=== PATIENT | male | born 1950 | race African-American/Black ===

== ENCOUNTER 2018-03-10 12:16 | Observation (INO) ==
[2018-03-10 13:25] LABS: Baso % (Auto) 0.7 % (0.0-2.0); Eos # (Auto) 0.1 th/mm3 (0.0-0.4); Eos % (Auto) 2.1 % (0.0-4.0); Hematocrit 36.4 % (39.0-51.0); Hemoglobin 12.2 gm/dL (13.0-17.0); Lymph # (Auto) 2.2 th/mm3 (1.0-4.8); Lymph % (Auto) 34.6 % (9.0-44.0); Mean Corpuscular HGB Conc 33.4 % (32.0-36.0); Mean Corpuscular Hemoglobin 31.1 pg (27.0-34.0); Mean Corpuscular Volume 93.2 fL (80.0-100.0); Mean Platelet Volume 8.6 fL (7.0-11.0); Mono # (Auto) 0.5 th/mm3 (0.0-0.9); Mono % (Auto) 7.7 % (0.0-8.0); Neut # (Auto) 3.5 th/mm3 (1.8-7.7); Neut % (Auto) 54.9 % (16.0-70.0); Platelet Count 237 th/mm3 (150-450); Red Blood Count 3.91 mil/mm3 (4.50-5.90); Red Cell Distribution Width 14.1 % (11.6-17.2); White Blood Count 6.3 th/mm3 (4.0-11.0)
--- NOTE | 2018-03-10 13:27 | XR ---
EXAM DATE: 03/10/2018 12:45 PM EDT AGE/SEX: 67 years / Male INDICATIONS: Shortness of breath. CLINICAL DATA: This is the patient's initial encounter. Patient reports that signs and symptoms have been present for 1 day and indicates a pain score of 0/10. MEDICAL/SURGICAL HISTORY: Diabetes. None. COMPARISON: . FINDINGS: A single AP view of the chest demonstrates the lungs to be symmetrically aerated without evidence of mass, infiltrate or effusion. The cardiomediastinal contours are unremarkable. Osseous structures a re intact. CONCLUSION: No acute cardiopulmonary disease Electronically signed by: Dirk Jovel MD 03/10/2018 1:25 PM EDT
[2018-03-10 13:32] LABS: Albumin 3.3 g/dL (3.4-5.0); Anion Gap 7 meq/L (5-15); Aspartate Aminotransferase 29 U/L (15-37); Blood Urea Nitrogen 11 mg/dL (7-18); Calcium 7.6 mg/dL (8.5-10.1); Chloride 107 meq/L (98-107); Glomerular Filtration Rate 67 mL/min (>89); Glucose,Random 166 mg/dL (74-106); Potassium 4.2 meq/L (3.5-5.1); Sodium 144 meq/L (136-145)
[2018-03-10 13:36] LABS: Prothrombin Time 10.6 sec (9.8-11.6)
[2018-03-10 13:37] LABS: Alanine Aminotransferase 32 U/L (12-78); Alkaline Phosphatase 74 U/L (45-117); Total Protein 6.7 g/dL (6.4-8.2); Troponin I 0.04 ng/mL (0.02-0.05)
--- NOTE | 2018-03-10 15:45 | ED ---
HPI General Chief Complaint: Chest Pain Stated Complaint: dizziness/left shoulder pain Time Seen by Provider: 03/10/18 12:36 Source: patient and family Mode of arrival: ambulatory Limitations: no limitations History of Present Illness HPI narrative: Patient is a 67-year-old male who presents with complaint of left shoulder/left chest pain that has been intermittent over the last several days and occurred again this morning. It comes on while resting and is not associated with exertion. He denies any nausea, vomiting. He does admit to some dyspnea when it began but is not having any pain or dyspnea at this time. He took approximately 81 mg of aspirin earlier this morning in addition to his diabetic medications. No cough, fever, chills. No numbness or weakness. He has not been immobilized and has no leg swelling. MD complaint: Reports chest pain STEMI Alert: No Onset (ago): minute(s) Duration: intermittent Onset: during rest Pain location: Reports left chest Severity: moderate Quality: Reports heaviness Relieving factors: nothing Exacerbating factors: nothing Associated symptoms: Reports dyspnea Treatments prior to arrival chest pain: Reports aspirin (81 mg) Related Data Home Medications Medication Instructions Recorded Confirmed insulin glargine [Lantus U-100 30 unit SUBCUT HS 03/10/18 03/10/18 Insulin] metformin 2,000 mg PO DAILY 03/10/18 03/10/18 Allergies Allergy/AdvReac Type Severity Reaction Status Date / Time No Known Allergies Allergy Verified 03/10/18 13:33 Review of Systems ROS: all other systems reviewed are negative [facility] Medical History Medical History Diabetes (Acute) Social History Social History Substance History: No History of Abuse Smoking Status: Former smoker How Often Do You Have a Drink Containing Alcohol: Never Recent Travel in [facility] within the Last 8 Weeks: No Recent Out of Country Travel within the Last 8 Weeks: No Immunization History Tetanus Immunization: Unsure Exam Narrative Exam Narrative: GENERAL: Well-appearing, elderly male in no acute distress SKIN: Focused skin assessment warm/dry. No rashes. HEAD: Atraumatic. Normocephalic. EYES: Pupils equal and round. No scleral icterus. No injection or drainage. ENT: No nasal bleeding or discharge. Mucous membranes pink and moist. NECK: Trachea midline. No JVD. CARDIOVASCULAR: Regular rate and rhythm. No murmur appreciated. Intact and equal peripheral pulses. RESPIRATORY: No accessory muscle use. Clear to auscultation. Breath sounds equal bilaterally. GASTROINTESTINAL: Abdomen soft, non-tender, nondistended. Hepatic and splenic margins not palpable. MUSCULOSKELETAL: No obvious deformities. No clubbing. No cyanosis. No edema. NEUROLOGICAL: Awake and alert. No obvious cranial nerve deficits. Motor grossly within normal limits. Normal sensation. Normal speech. PSYCHIATRIC: Appropriate mood and affect; insight and judgment normal. Course Initial Documented Vital Signs Temperature 97.8 F 03/10/18 12:22 Pulse Rate 80 03/10/18 12:22 Respiratory Rate 19 03/10/18 12:22 Blood Pressure 139/70 03/10/18 12:22 Pulse Oximetry 98 03/10/18 12:22 Last Documented Vital Signs Temperature 97.7 F 03/10/18 13:26 Pulse Rate 70 03/10/18 13:26 Respiratory Rate 17 03/10/18 13:26 Blood Pressure 157/68 H 03/10/18 13:26 Pulse Oximetry 98 03/10/18 13:26 Medical Decision Making MDM Narrative Medical decision making narrative: Patient is a 67-year-old male with history of diabetes who presents with complaint of chest pain that has been intermittent. EKG shows T wave flattening in lead III but no other ST or T wave changes. He is pain-free on arrival here. Labs and chest x-ray are relatively unremarkable. He has been admitted to the chest pain center for serial troponins and EKGs. Medical Screen Exam Complete: Yes Emergency Medical Condition: Yes Differential Diagnosis Differential Diagnosis: Differential diagnosis includes but is not limited to acute coronary syndrome, pneumonia, pneumothorax. Medical Records Medical records reviewed: Yes I reviewed the patient's medical records. Lab Data Lab results reviewed: Yes I reviewed the patient's lab results. Result diagrams: 03/10/18 13:00 03/10/18 13:00 Lab Results 03/10/18 03/10/18 03/10/18 Range/Units 13:00 13:00 13:00 WBC 6.3 (4.0-11.0) th/mm3 RBC 3.91 L (4.50-5.90) mil/mm3 Hgb 12.2 L (13.0-17.0) gm/dL Hct 36.4 L (39.0-51.0) % MCV 93.2 (80.0-100.0) fL MCH 31.1 (27.0-34.0) pg MCHC 33.4 (32.0-36.0) % RDW 14.1 (11.6-17.2) % Plt Count 237 (150-450) th/mm3 MPV 8.6 (7.0-11.0) fL Neut % (Auto) 54.9 (16.0-70.0) % Lymph % (Auto) 34.6 (9.0-44.0) % Gulf % (Auto) 7.7 (0.0-8.0) % Eos % (Auto) 2.1 (0.0-4.0) % Baso % (Auto) 0.7 (0.0-2.0) % Neut # (Auto) 3.5 (1.8-7.7) th/mm3 Lymph # (Auto) 2.2 (1.0-4.8) th/mm3 Gulf # (Auto) 0.5 (0.0-0.9) th/mm3 Eos # (Auto) 0.1 (0.0-0.4) th/mm3 Baso # (Auto) 0.0 (0.0-0.2) th/mm3 WBC Differential . Differential Comment Auto diff final PT 10.6 (9.8-11.6) sec INR 1.0 Ratio APTT 25.0 (24.3-30.1) sec Sodium 144 (136-145) meq/L Potassium 4.2 (3.5-5.1) meq/L Chloride 107 (98-107) meq/L Carbon Dioxide 30.0 (21.0-32.0) meq/L Anion Gap 7 (5-15) meq/L BUN 11 (7-18) mg/dL Creatinine 1.10 (0.60-1.30) mg/dL Estimated GFR 67 L (>89) mL/min Random Glucose 166 H (74-106) mg/dL Calcium 7.6 L (8.5-10.1) mg/dL Total Bilirubin 0.3 (0.2-1.0) mg/dL AST 29 (15-37) U/L ALT 32 (12-78) U/L Alkaline Phosphatase 74 (45-117) U/L Troponin I 0.04 (0.02-0.05) ng/mL Total Protein 6.7 (6.4-8.2) g/dL Albumin 3.3 L (3.4-5.0) g/dL 03/10/18 Range/Units 13:00 WBC (4.0-11.0) th/mm3 RBC (4.50-5.90) mil/mm3 Hgb (13.0-17.0) gm/dL Hct (39.0-51.0) % MCV (80.0-100.0) fL MCH (27.0-34.0) pg MCHC (32.0-36.0) % RDW (11.6-17.2) % Plt Count (150-450) th/mm3 MPV (7.0-11.0) fL Neut % (Auto) (16.0-70.0) % Lymph % (Auto) (9.0-44.0) % Gulf % (Auto) (0.0-8.0) % Eos % (Auto) (0.0-4.0) % Baso % (Auto) (0.0-2.0) % Neut # (Auto) (1.8-7.7) th/mm3 Lymph # (Auto) (1.0-4.8) th/mm3 Gulf # (Auto) (0.0-0.9) th/mm3 Eos # (Auto) (0.0-0.4) th/mm3 Baso # (Auto) (0.0-0.2) th/mm3 WBC Differential Differential Comment PT (9.8-11.6) sec INR Ratio APTT (24.3-30.1) sec Sodium (136-145) meq/L Potassium (3.5-5.1) meq/L Chloride (98-107) meq/L Carbon Dioxide (21.0-32.0) meq/L Anion Gap (5-15) meq/L BUN (7-18) mg/dL Creatinine (0.60-1.30) mg/dL Estimated GFR (>89) mL/min Random Glucose (74-106) mg/dL Calcium (8.5-10.1) mg/dL Total Bilirubin (0.2-1.0) mg/dL AST (15-37) U/L ALT (12-78) U/L Alkaline Phosphatase (45-117) U/L Troponin I Cancelled (0.02-0.05) ng/mL Total Protein (6.4-8.2) g/dL Albumin (3.4-5.0) g/dL Imaging Data Attestation: I personally reviewed and interpreted this imaging study as follows : Radiologist's impression: Chest X-Ray 03/10/18 12:45 CONCLUSION: No acute cardiopulmonary disease ECG Data EKG Prior to Arrival: No Attestation: I personally reviewed and interpreted this ECG as follows: (Sinus rhythm at a rate of 72 bpm. There is T wave flattening in lead III but no other ST or T wave changes.) Discharge Plan Discharge Disposition Patient Disposition: 30 Still Patient Discharge Condition Condition: Stable Discharge Details Diagnosis: Chest pain, rule out acute myocardial infarction Physicians Team ED Provider: Avelina Zuluaga Primary Care Provider: [facility] Attending Provider: Felipe Paulino Discharge Interventions Interventions: Vital Signs Last Done: 03/10/18 13:26 Status ED Status: Admitted Observation Patient
[2018-03-10] MEDS ORDERED: Acetaminophen 500 MG Tablet PO PRN (15:46)
[2018-03-10] MEDS ORDERED: Dextrose 50% in Water 50 ML Vial IV.PUSH PRN (15:54)
--- NOTE | 2018-03-10 17:03 | P.HPCA ---
History of Present Illness Primary Care Physician: [facility] Chief Complaint: Chest pain History of Present Illness: 67 year old male with history of type II diabetes presents to ER for further evaluation of left side neck and chest pain. Onset mid-morning. Location left side of neck. Characterized as throbbing and an ache. Intermittent radiation to left anterior chest. Discomfort comes on quickly and resolves quickly. Duration "a few minutes." Associated symptoms include mild shortness of breath and slight dizziness. Denied nausea, vomiting, or dyspnea. No precipitating or relieving factors. Denies similar pain in the past. No particular movement, position, or breathing makes discomfort better or worse. No known coronary artery disease. Known type 2 diabetes, diagnosed age 37. Reports last HGA1C to be around 10%. Also have experienced intermittent palpations and feeling his heart "missing a beat" for one month. No associated symptoms with palpations. Past cardiac testing Remote exercise testing while in the . Social history Known diabetes. No known hyperlipidemia, hypertension, or CAD. Prescribed atorvastatin and ARB, likely due to diabetes diagnoses. Remote smoker, quit over 40 years ago. No alcohol or recreational drug use. Retired from [employer] 26 years. Disabled. . Endorses sedentary lifestyle. Family history Noncontributory for early onset cardiovascular disease. Brother required cardiac stent in his mid 60s. X4 sisters from cancer, type of cancer unknown. Mother age 80 complications from diabetes. Father when he was 7 years old. - Diagnosis (1) Chest pain of uncertain etiology (2) Type 2 diabetes mellitus with peripheral neuropathy (3) History of anemia Review of Systems All other systems reviewed negative except as stated [facility] - History History Provided By: Patient - Medical History Medical History: Medical History (Last Updated 03/10/18 @ 16:53 by GYPSY Parrish) Arthritis Diabetic neuropathy GERD (gastroesophageal reflux disease) Hypothyroidism associated with surgical procedure Type 2 diabetes mellitus - Surgical History Surgical History: Surgical History (Last Updated 03/10/18 @ 16:54 by GYPSY Parrish) History of thyroidectomy - Family History Family History: Family History (Last Updated 03/10/18 @ 16:54 by GYPSY Parrish) Brother Coronary artery disease Father Type 2 diabetes mellitus Sister Cancer Sister Cancer Sister Cancer Sister Cancer - Social History I have reviewed the patient's Social History: Yes - Tobacco History Second Hand Smoke Exposure: No Tobacco Use In Past 30 Days: No Smoking Status: Former smoker (Quit over 40 years ago.) - Alcohol History How Often Do You Have a Drink Containing Alcohol: Never - Substance Use History Substance History: No History of Abuse - Travel History Recent Travel in the [place] Within the Last 8 Weeks: No Recent Travel Out of the Country Within the Last 8 Weeks: No - Immunization History Tetanus Immunization: Unsure Medications and Allergies Active Medications: Active Medications Acetaminophen (Tylenol) 500 mg PO Q4H PRN PRN Reason: HEADACHE Dextrose (D50w Vial) 50 ml IV.PUSH UNSCH PRN PRN Reason: PER HYPOGLYCEMIA PROTOCOL Glucagon (Glucagon Inj) 1 mg OTHER PRN PRN PRN Reason: for Hypoglycemia Protocol Insulin Aspart (Novolog Insulin Correctional Sugar Inj) 0 unit SQ ACHS RICKI; Protocol Nitroglycerin (Nitrostat Sl) 0.4 mg SL Q5M PRN PRN Reason: CHEST PAIN Ondansetron HCl (Zofran Inj) 4 mg IV.PUSH Q6H PRN PRN Reason: NAUSEA Sodium Chloride (Ns Flush) 2 ml IV.FLUSH UNSCH PRN PRN Reason: FLUSH AFTER USING IV ACCESS Last Admin: 03/10/18 12:54 Dose: 2 ml Sodium Chloride (Ns Flush) 2 ml IV.FLUSH BID RICKI Allergies Allergy/AdvReac Type Severity Reaction Status Date / Time No Known Allergies Allergy Verified 03/10/18 13:33 Home Medications Medication Instructions Recorded Confirmed Type insulin glargine [Lantus U-100 30 unit SUBCUT HS 03/10/18 03/10/18 History Insulin] metformin 2,000 mg PO DAILY 03/10/18 03/10/18 History Exam Vital signs: Vital Signs 03/10/18 12:22 03/10/18 12:48 03/10/18 12:49 Temperature 97.8 F Pulse Rate 80 81 Respiratory Rate 19 Blood Pressure 139/70 Pulse Oximetry 98 100 03/10/18 12:50 03/10/18 13:26 03/10/18 15:50 Temperature 97.7 F 97.9 F Pulse Rate 79 70 69 Respiratory Rate 16 17 16 Blood Pressure 157/68 H 157/68 H 150/68 H Pulse Oximetry 100 98 99 03/10/18 15:54 Temperature 97.7 F Pulse Rate 103 H Respiratory Rate 20 Blood Pressure 178/88 H Pulse Oximetry 98 Intake & Output 03/09/18 03/10/18 03/10/18 18:59 06:59 18:59 Weight 81.647 kg Narrative: GENERAL: Alert WN, WD, NAD, pleasant, -[place], elderly male HEAD: NC, AT EYES: Sclera clear, conjunctiva without injection, pupils equal and round ENT: Mucous membranes pink and moist NECK: Supple, no masses, trachea midline CV: RRR, without murmur, rub, gallop, no JVD, S1-S2 no S3-S4. No carotid bruits. Chest wall nontender with palpation. RESP: Clear lungs throughout bilateral, no crackles, wheeze, rhonchi, symmetrical chest rise, nonlabored, able to speak in full sentences ABD: Soft, NT, ND, no masses, positive bowel tones EXT: Pulses +1x4, no dependent edema MS: Normal tone x4 extremities, nontender, no obvious deformities, full range of motion, cervical area nontender with palpation, pain slightly reproduced during passive ROM, difficult for him to determine, no pain reproduced during passive ROM during abduction and adduction. NEURO: CN II through CN XII grossly intact, motor strength 5/5 PSYCH: A+O x3, pleasant affect, appropriate speech, mood, insight and judgment SKIN: Normal turgor, normal texture, no lesions, no rashes Results 03/10/18 13:00 03/10/18 13:00 Cardiac Enzymes 03/10/18 03/10/18 Range/Units 13:00 13:00 AST 29 (15-37) U/L Troponin I 0.04 Cancelled (0.02-0.05) ng/mL Coagulation 03/10/18 Range/Units 13:00 PT 10.6 (9.8-11.6) sec APTT 25.0 (24.3-30.1) sec CBC 03/10/18 Range/Units 13:00 WBC 6.3 (4.0-11.0) th/mm3 RBC 3.91 L (4.50-5.90) mil/mm3 Hgb 12.2 L (13.0-17.0) gm/dL Hct 36.4 L (39.0-51.0) % Plt Count 237 (150-450) th/mm3 Neut # (Auto) 3.5 (1.8-7.7) th/mm3 Lymph # (Auto) 2.2 (1.0-4.8) th/mm3 Story # (Auto) 0.5 (0.0-0.9) th/mm3 Eos # (Auto) 0.1 (0.0-0.4) th/mm3 Baso # (Auto) 0.0 (0.0-0.2) th/mm3 Comprehensive Metabolic Panel 03/10/18 Range/Units 13:00 Sodium 144 (136-145) meq/L Potassium 4.2 (3.5-5.1) meq/L Chloride 107 (98-107) meq/L Carbon Dioxide 30.0 (21.0-32.0) meq/L BUN 11 (7-18) mg/dL Creatinine 1.10 (0.60-1.30) mg/dL Calcium 7.6 L (8.5-10.1) mg/dL AST 29 (15-37) U/L ALT 32 (12-78) U/L Alkaline Phosphatase 74 (45-117) U/L Total Protein 6.7 (6.4-8.2) g/dL Albumin 3.3 L (3.4-5.0) g/dL Intake and Output 03/10/18 03/10/18 03/10/18 06:59 14:59 22:59 Other: Weight 81.647 kg Patient Weight 03/11/18 06:59 Weight 81.647 kg - Imaging and Cardiology Imaging: Impressions Chest X-Ray 03/10/18 12:45 CONCLUSION: No acute cardiopulmonary disease EKG interpretations - EKG EKG results cardiology: sinus rhythm, normal axis, normal QRS, normal ST/T Caprini VTE Risk Assessment Caprini VTE Risk Assessment: Moderate/High Risk (score >= 2) Caprini Risk Assessment Model: Point Value = 1 Point Value = 2 Point Value = 3 Point Value = 5 Age 41-60 Minor surgery BMI > 25 kg/m2 Swollen legs Varicose veins or History of unexplained or recurrent spontaneous Oral contraceptives or hormone replacement Sepsis (< 1 month) Serious lung disease, including pneumonia (< 1 month) Abnormal pulmonary function Acute myocardial infarction Congestive heart failure (< 1 month) History of inflammatory bowel disease Medical patient at bed rest Age 61-74 Arthroscopic surgery Major open surgery (> 45 min) Laparoscopic surgery (> 45 min) Malignancy Confined to bed (> 72 hours) Immobilizing plaster cast Central venous access Age >= 75 History of VTE Family history of VTE Factor V Leiden Prothrombin [id number] Lupus anticoagulant Anticardiolipin antibodies Elevated serum homocysteine Heparin-induced thrombocytopenia Other congenital or acquired thrombophilia Stroke (< 1 month) Elective arthroplasty Hip, pelvis, or leg fracture Acute spinal cord injury (< 1 month) Prophylaxis Regimen: Total Risk Factor Score Risk Level Prophylaxis Regimen 0-1 Low Early ambulation 2 Moderate Order ONE of the following: *Sequential Compression Device (SCD) *Heparin 5000 units SQ BID 3-4 Higher Order ONE of the following medications: *Heparin 5000 units SQ TID *Enoxaparin/Lovenox 40 mg SQ daily (WT < 150 kg, CrCl > 30 mL/min) *Enoxaparin/Lovenox 30 mg SQ daily (WT < 150 kg, CrCl > 10-29 mL/min) *Enoxaparin/Lovenox 30 mg SQ BID (WT < 150 kg, CrCl > 30 mL/min) AND/OR *Sequential Compression Device (SCD) 5 or more Highest Order ONE of the following medications: *Heparin 5000 units SQ TID (Preferred with Epidurals) *Enoxaparin/Lovenox 40 mg SQ daily (WT < 150 kg, CrCl > 30 mL/min) *Enoxaparin/Lovenox 30 mg SQ daily (WT < 150 kg, CrCl > 10-29 mL/min) *Enoxaparin/Lovenox 30 mg SQ BID (WT < 150 kg, CrCl > 30 mL/min) AND *Sequential Compression Device (SCD) Assessment and Plan - Assessment (1) Chest pain of uncertain etiology Code(s): R07.89 - Other chest pain Status: Acute Plan: Admitted to chest pain center. Continue ruling out ACS with 3 sets of EKGs and cardiac enzymes. First EKG normal sinus rhythm with no ST-T segment changes. First troponin 0.04. Monitor trend. Will be seen and evaluated by Dr. Mary Mike. Discomfort atypical however patient is a diabetic. Discussed plan of care with patient and son at bedside. Monitor on telemetry overnight. If ruled out, likely will require further cardiac testing. (2) Type 2 diabetes mellitus with peripheral neuropathy Code(s): E11.42 - Type 2 diabetes mellitus with diabetic polyneuropathy Status : Chronic Plan: Hold metformin and Lantus until further testing completed. N.p.o. after midnight. SSI low dose coverage. Continue statin and ARN once home medications updated in [facility]. (3) History of anemia Code(s): Z86.2 - Personal history of diseases of the blood and blood-forming organs and certain disorders involving the immune mechanism Status: Chronic Plan: H/H 12.2/36.4. Endorses history of anemia. Stable. Follow up with PCP.
[2018-03-10] MEDS: Insulin NovoLOG Aspart Correctional Sugar Inj SQ SCH ×2 (17:38→22:18)
[2018-03-10 18:08] LABS: Troponin I 0.03 ng/mL (0.02-0.05)
[2018-03-10 18:21] LABS: Creatine Kinase MB 3.9 ng/mL (0.5-3.6)
[2018-03-10 19:30] LABS: Troponin I 0.03 ng/mL (0.02-0.05)
[2018-03-11 07:58] VITALS: RESP 16; TEMP 97.9
--- NOTE | 2018-03-11 08:55 | P.PNCA ---
Subjective Interval history: No further cardiac or neck pain. Offers no complaints. Medications and Allergies Active Medications: Active Medications Acetaminophen (Tylenol) 500 mg PO Q4H PRN PRN Reason: HEADACHE Atorvastatin Calcium (Lipitor) 10 mg PO DAILY [facility] Dextrose (D50w Vial) 50 ml IV.PUSH UNSCH PRN PRN Reason: PER HYPOGLYCEMIA PROTOCOL Glucagon (Glucagon Inj) 1 mg OTHER PRN PRN PRN Reason: for Hypoglycemia Protocol Insulin Aspart (Novolog Insulin Correctional Sugar Inj) 0 unit SQ ACHS RICKI; Protocol Last Admin: 03/10/18 22:18 Dose: Not Given Levothyroxine Sodium (Synthroid) 200 mcg PO DAILY@0600 RICKI Losartan Potassium (Cozaar) 50 mg PO DAILY [facility] Nitroglycerin (Nitrostat Sl) 0.4 mg SL Q5M PRN PRN Reason: CHEST PAIN Ondansetron HCl (Zofran Inj) 4 mg IV.PUSH Q6H PRN PRN Reason: NAUSEA Pantoprazole Sodium (Protonix) 20 mg PO DAILY [facility] Sodium Chloride (Ns Flush) 2 ml IV.FLUSH UNSCH PRN PRN Reason: FLUSH AFTER USING IV ACCESS Last Admin: 03/10/18 12:54 Dose: 2 ml Sodium Chloride (Ns Flush) 2 ml IV.FLUSH BID [facility] Last Admin: 03/10/18 22:15 Dose: 2 ml Allergies Allergy/AdvReac Type Severity Reaction Status Date / Time No Known Allergies Allergy Verified 03/10/18 13:33 Home Medications Medication Instructions Recorded Confirmed Type aspirin 81 mg PO DAILY 03/10/18 03/10/18 History atorvastatin 10 mg PO DAILY 03/10/18 03/10/18 History calcium carbonate [Calcium 500] 500 mg PO DAILY 03/10/18 03/10/18 History insulin glargine [Lantus U-100 30 unit SUBCUT HS 03/10/18 03/10/18 History Insulin] levothyroxine 200 mcg PO DAILY 03/10/18 03/10/18 History losartan 50 mg PO DAILY 03/10/18 03/10/18 History magnesium oxide 400 mg PO HS 03/10/18 03/10/18 History metformin 2,000 mg PO DAILY 03/10/18 03/10/18 History omeprazole 20 mg PO DAILY 03/10/18 03/10/18 History vitamin B complex 1 cap PO 3XW 03/10/18 03/10/18 History Physical Exam Vital signs: Vital Signs 03/10/18 12:22 03/10/18 12:48 03/10/18 12:49 Temperature 97.8 F Pulse Rate 80 81 Respiratory Rate 19 Blood Pressure 139/70 Pulse Oximetry 98 100 03/10/18 12:50 03/10/18 13:26 03/10/18 15:50 Temperature 97.7 F 97.9 F Pulse Rate 79 70 69 Respiratory Rate 16 17 16 Blood Pressure 157/68 H 157/68 H 150/68 H Pulse Oximetry 100 98 99 03/10/18 15:54 03/10/18 16:58 03/10/18 20:00 Temperature 97.7 F 97.9 F 98.7 F Pulse Rate 103 H 67 77 Respiratory Rate 20 18 19 Blood Pressure 178/88 H 132/70 144/69 H Pulse Oximetry 98 98 98 03/10/18 23:46 03/11/18 03:53 03/11/18 07:56 Temperature 98.3 F 97.5 F L 97.9 F Pulse Rate 71 86 76 Respiratory Rate 19 19 16 Blood Pressure 105/62 111/67 130/66 Pulse Oximetry 96 100 98 Intake & Output 03/10/18 03/11/18 03/11/18 18:59 06:59 18:59 Output Total 260 / 260 825 / 825 Balance -260 / -260 -825 / -825 Weight 81.647 kg 81.65 kg Output: Urine 260 / 260 825 / 825 Other: Weight On Admission 81.647 kg - Constitutional no acute distress, cooperative - Routine HEENT Exam Head: Present: normocephalic, atraumatic - Routine Respiratory Exam Present: CTA bilaterally. Absent: respiratory distress, rhonchi, wheezes, crackles - Routine Cardiovascular Exam Present: RRR. Absent: murmur, gallop, rubs - Routine Abdominal Exam Present: soft, normoactive bowel sounds Results 03/10/18 13:00 03/10/18 13:00 Cardiac Enzymes 03/10/18 03/10/18 03/10/18 Range/Units 13:00 13:00 17:04 AST 29 (15-37) U/L CK-MB (CK-2) 3.9 H (0.5-3.6) ng/mL Troponin I 0.04 Cancelled 0.03 (0.02-0.05) ng/mL 03/10/18 Range/Units 18:49 AST (15-37) U/L CK-MB (CK-2) (0.5-3.6) ng/mL Troponin I 0.03 (0.02-0.05) ng/mL Coagulation 03/10/18 Range/Units 13:00 PT 10.6 (9.8-11.6) sec APTT 25.0 (24.3-30.1) sec CBC 03/10/18 Range/Units 13:00 WBC 6.3 (4.0-11.0) th/mm3 RBC 3.91 L (4.50-5.90) mil/mm3 Hgb 12.2 L (13.0-17.0) gm/dL Hct 36.4 L (39.0-51.0) % Plt Count 237 (150-450) th/mm3 Neut # (Auto) 3.5 (1.8-7.7) th/mm3 Lymph # (Auto) 2.2 (1.0-4.8) th/mm3 [place] # (Auto) 0.5 (0.0-0.9) th/mm3 Eos # (Auto) 0.1 (0.0-0.4) th/mm3 Baso # (Auto) 0.0 (0.0-0.2) th/mm3 Comprehensive Metabolic Panel 03/10/18 Range/Units 13:00 Sodium 144 (136-145) meq/L Potassium 4.2 (3.5-5.1) meq/L Chloride 107 (98-107) meq/L Carbon Dioxide 30.0 (21.0-32.0) meq/L BUN 11 (7-18) mg/dL Creatinine 1.10 (0.60-1.30) mg/dL Calcium 7.6 L (8.5-10.1) mg/dL AST 29 (15-37) U/L ALT 32 (12-78) U/L Alkaline Phosphatase 74 (45-117) U/L Total Protein 6.7 (6.4-8.2) g/dL Albumin 3.3 L (3.4-5.0) g/dL Intake and Output 03/10/18 03/11/18 03/11/18 22:59 06:59 14:59 Output Total 260 / 260 825 / 825 Balance -260 / -260 -825 / -825 Output: Urine 260 / 260 825 / 825 Other: Weight 81.647 kg 81.65 kg Weight On Admission 81.647 kg - Imaging and Cardiology Imaging: Impressions Chest X-Ray 03/10/18 12:45 CONCLUSION: No acute cardiopulmonary disease Assessment and Plan - Assessment (1) Chest pain of uncertain etiology Code(s): R07.89 - Other chest pain Status: Acute Plan: Admitted to chest pain center. ACS ruled out with 3 sets of EKGs and cardiac enzymes. Monitor on telemetry overnight. Seen and evaluated by Dr. Mary Mike. Proceed with nuclear treadmill testing this morning. If unremarkable, plans to discharge home with follow-up with [facility]. Verbalized understanding and agreeable to plan of care. (2) Type 2 diabetes mellitus with peripheral neuropathy Code(s): E11.42 - Type 2 diabetes mellitus with diabetic polyneuropathy Status : Chronic Plan: Hold metformin and Lantus until further testing completed. N.p.o. after midnight. SSI low dose coverage. Continue atorvastatin and losartan. Encouraged increasing daily activity upon discharge. (3) History of anemia Code(s): Z86.2 - Personal history of diseases of the blood and blood-forming organs and certain disorders involving the immune mechanism Status: Chronic Plan: H/H 12.2/36.4. Endorses history of anemia. Stable. Follow up with PCP.
[2018-03-11] MEDS ORDERED: Pantoprazole Sodium 20 MG DR Tablet PO SCH (09:00)
[2018-03-11 11:48] VITALS: BP 129/66; PULSE 69; O2SAT 100
--- NOTE | 2018-03-11 12:06 | NM ---
EXAM DATE: 03/11/2018 10:23 AM EDT AGE/SEX: 67 years / Male INDICATIONS: Angina. . Chest pain. CLINICAL DATA: This is the patient's initial encounter. Patient reports that signs and symptoms have been present for 1 day and indicates a pain score of 4/10. MEDICAL/SURGICAL HISTORY: Hypothyroidism. Diabetes mellitus type II. Thyroidectomy. COMPARISON: No prior exams available for comparison. DOSE: 8.5 mCi Tc 99m Myoview at rest 26.5 mCi [id number] at stress REST HEART RATE: 76 BPM TARGET HEART RATE: 129 BPM MAX HEART RATE: 133 BPM REST BLOOD PRESSURE: 108/68 mmHg MAX BLOOD PRESSURE: 178/68 mmHg EJECTION FRACTION: 56 % TECHNIQUE: The patient underwent upright treadmill exercise in the chest pain center. Continuous EC G tracing was monitored during stress. Gated SPECT imaging was performed after stress, and conventio nal SPECT imaging was performed at rest. The examination was performed on a SPECT/CT scanner, both a ttenuation-corrected and non-corrected datasets were reviewed. FINDINGS: Distribution: The maximum perfused segment at stress is in the septal wall. Perfusion: The pattern of perfusion at stress is within normal limits. Gated Study: There are intact wall motion and wall thickening without hypokinetic or dyskinetic segme nts. The ejection fraction is calculated at 56%. RISK CATEGORY: Low (<1% Annual Motality Rate) CONCLUSION: 1. Unremarkable myocardial perfusion exam for patient's age. Electronically signed by: Jori Khan MD 03/11/2018 12:05 PM EDT
[2018-03-11] MEDS: Insulin NovoLOG Aspart Correctional Sugar Inj SQ SCH ×2 (12:22→12:32)
--- NOTE | 2018-03-12 06:48 | ECG ---
Date Performed: 03/10/2018 Time Performed: 18:40:29 PTAGE: 67 years EKG: Sinus rhythm BORDERLINE LEFT AXIS DEVIATION BORDERLINE ECG Since PREVIOUS TRACING , no significant change noted PREVIOUS TRACIN03/10/2018 16.55 DOCTOR: Mary Mike Interpretating Date/Time 03/12/2018 06:48:16
--- NOTE | 2018-03-12 06:48 | TR ---
Date Performed: 03/11/2018 Time Performed: 10:57:19 DOCTOR: Mary Mike DRUG LIST: CLINICAL HISTORY: REASON FOR TEST: REASON FOR ENDING: OBSERVATION: CONCLUSION: Yoel protocol completed. Stopped sec to exceeding target heart rate and leg fatigue . Maximum UV=051 Max HR Achieved=88.0% Maximum RY=533/76 Total Exercise Time=6:01. No reprod chest di scom[place]. Infrequent PVC. No st t segment changes. Normal bp response. Recovery quick and unremarkabl e. Nuclear images pending. No ischemia on ETT COMMENTS: No ischemia on ETT
--- NOTE | 2018-03-12 06:50 | ECG ---
Date Performed: 03/10/2018 Time Performed: 16:55:26 PTAGE: 67 years EKG: Sinus rhythm BORDERLINE LEFT AXIS DEVIATION BORDERLINE ECG Since PREVIOUS TRACING , no significant change noted PREVIOUS TRACIN03/10/2018 12.58 DOCTOR: Mary Mike Interpretating Date/Time 03/12/2018 06:48:34
--- NOTE | 2018-03-12 06:50 | ECG ---
Date Performed: 03/10/2018 Time Performed: 12:58:50 PTAGE: 67 years EKG: Sinus rhythm WITH FIRST DEGREE AV BLOCK BORDERLINE LEFT AXIS DEVIATION ABNORMAL ECG NO PREVIOUS TRACING DOCTOR: Mary Mike Interpretating Date/Time 03/12/2018 06:48:55
== END 2018-03-11 11:41 | disposition home or self-care (01) ==
LOC: NEPE 12:16 → NEDA 12:16 → NEPFCDU 15:49
PROVIDERS: ADMIT Internal Medicine Cardiovascular Disease; ATTEND Internal Medicine Cardiovascular Disease